=== PATIENT | female | born 1965 | race Two or more races ===

== ENCOUNTER 2017-01-21 01:52 | Inpatient (IN) | payer SELFPAY ==
--- NOTE | ~2017-01-21 | HEMODYNAMI ---
PATIENT:DAKOTA MATAMOROS MEDICAL RECORD: [id number] : 69 LOCATION:[facility] D.2116 ADMISSION DATE: 01/21/17 Generatedon:01/21/201716:31 Patient name: DAKOTA MATAMOROS Patient #: [id number] SSN: : 1965 Date of study: 01/21/2017 Page: Of Hemodynamic Procedure Report Patient Data Patient Demographics Procedure consent was obtained First Name: DAKOTA Gender: Female Last Name: SHILOH : 1965 Patient #: [id number] Age: 51 year(s) Race: Other Additional ID: [id number] Contact details [address]: [address] [place] [address] [address]IVE State: [place] City: [place] Zip code: [address] Past Medical History Allergies Allergen Reaction Date Comments Reported Other allergy 01/21/2017 shellfish, cinnnamon Admission Admission Data Admission Date: 01/21/2017 Admission Time: 4:47 Admit Source: Emergency department Room #: D.2116 Lab Results Lab Result Date: 01/21/2017 Lab Result Time: 9:45 Biochemistry Name Units Result Min Max BUN mg/dl 12 --(-*--)-- 7 18 Creatinine mg/dl 1 --(--*-)-- 0.6 1.3 CBC Name Units Result Min Max Hematocrit % 38.2 *-(----)-- 42 54 Hemoglobin g/dl 12.7 -*(----)-- 13.5 17.5 Procedure Procedure Types Cath Procedure Diagnostic Procedure LHC LHC w/Coronaries Miscellaneous Procedures Moderate Sedation up to 15 minutes Procedure Description Procedure Date Procedure Date: 01/21/2017 Procedure Start Time: 16:22 Procedure End Time: 16:30 Procedure Staff Name Function Roshan Yousif MD Performing Physician Brian Villeda RT Scrub Duy Rodriguez RN Nurse Alcides Mello RT Monitor Procedure Data Cath Procedure Fluoroscopy Diagnostic fluoroscopy Total fluoroscopy Time: 0.7 time: 0.7 min min Diagnostic fluoroscopy Total fluoroscopy dose: 304 dose: 304 mGy mGy Contrast Material Contrast Material Type Amount (ml) Isovue 300 47 Entry Location Entry Primary Successful Side Size Upsize Upsize Entry Closure [place]ales ccessful Closure Location (Fr) 1 (Fr) 2 (Fr) Remarks Device Remarks Radial Right 6 Fr Mechanical artery Short Compression Estimated blood loss: 5 ml Diagnostic catheters Device Type Used For End Catheter Placement Diagnostic Terumo 5Fr Procedure [place] 110cm catheter Procedure Complications No complications Procedure Medications Medication Administration Route Dosage Oxygen NC 2 l/min Lidocaine 2% added to field 20 Heparin Flush Bag added to field 2 bags (1000units/500ml NS) 0.9% NaCl I.V. 100 ml/hr Versed I.V. 1 mg Fentanyl I.V. 50 mcg Radial Cocktail I.A. 1 syringe (Verapomil 2mg/Nitro 400mcg/Heparin 1500units) Versed I.V. 1 mg Fentanyl I.V. 50 mcg Hemodynamics Rest HGB: 12.7 (g/dl) Heart Rate: 98 (bpm) Pressure Samples Time Site Value (mmHg) Purpose Heart Use Rate(bpm) 16:25 LV 105/27,33 Snapshot 109 16:25 LV 102/11,21 Snapshot 109 Snapshots Pre Cath Intra NCS Post Cath Vital Signs Time Heart Resp SPO2 etCO2 [id number] NIBP Rhythm Pain Sedation Rate (ipm) (%) (mmHg) (mmHg) (mmHg) Status Level (bpm) 15:58:22 94 13 98 0 0 123/71(93) NSR 0 (11) 10(A) , No pain 16:03:06 89 14 96 0 0 123/76(91) NSR 0 (11) 10(A) , No pain 16:07:51 97 17 99 0 0 121/75(94) NSR 0 (11) 10(A) , No pain 16:12:36 83 14 96 0 0 118/68(89) NSR 0 (11) 10(A) , No pain 16:17:21 84 15 97 0 0 117/69(88) NSR 0 (11) 10(A) , No pain 16:22:03 86 14 100 0 0 113/65(88) NSR 0 (11) 10(A) , No pain 16:26:46 101 15 95 0 0 111/53(79) NSR 0 (11) 9(A) , No pain 16:31:02 91 15 96 0 0 112/60(85) NSR 0 (11) 10(A) , No pain Medications Time Medication Route Dose Verified Delivered Reason Notes Effectiveness by by 16:02:14 Oxygen NC 2 l/min Roshan Gordillo used for Benja Rodriguez RN procedure 16:02:24 Lidocaine 2% added 20ml Roshan Islas for local to vial Benja Yousif MD anesthetic field 16:02:32 Heparin Flush added 2 bags Roshan Islas used for Bag to Benja Yousif MD procedure (1000units/500ml field NS) 16:02:42 0.9% NaCl I.V. 100 Roshan Gordillo Per ml/hr Benja Rodriguez RN physician 16:21:45 Versed I.V. 1 mg Roshan Gordillo for sedation Benja Rodriguez RN 16:21:53 Fentanyl I.V. 50 mcg Roshan Gordillo for sedation Benja Rodriguez RN 16:24:39 Radial Cocktail I.A. 1 Roshan Islas for (Verapomil syringe Benja Yousif MD vasodilation 2mg/Nitro 400mcg/Heparin 1500units) 16:25:36 Versed I.V. 1 mg Roshan Gordillo for sedation Benja Rodriguez RN 16:25:41 Fentanyl I.V. 50 mcg Roshan Gordillo for sedation Benja Rodriguez RN Procedure Log Time Note 15:25:39 Duy Rodriguez RN sent for patient. Start room use. 15:41:14 Informed consent obtained and on chart 15:41:20 Admit Source: Emergency department 15:41:47 Time tracking: Regular hours 15:41:51 Plan of Care:Hemodynamics will remain stable., Cardiac rhythm will remain stable., Comfort level will be maintained., Respiratory function will remain adequate., Patient/ family verbilizes understanding of procedure., Procedure tolerated without complication., Recovers from procedure without complications.. 15:42:03 Patient received from Med II to CCL 2 Alert and oriented. Tansferred to table in Supine position. 15:42:04 Warm blankets applied, and orinaa hugger turned on for patient comfort. 15:42:04 Correct patient and procedure confirmed by team. 15:42:05 ECG and BP/O2 sat monitors applied to patient. 15:42:12 H&P Date Dictated: 01/21/2017 New H&P dictated by physician.. 15:42:14 Pre-procedure instructions explained to patient. 15:42:14 Pre-op teaching completed and patient verbalized understanding. 15:42:17 Family in patients room. 15:42:18 Patient NPO since Midnight. 15:42:37 Patient allergic to Other allergyshellfish, cinnnamon 15:42:43 Is the patient allergic to Iodine/contrast media? Unknown. 15:42:45 Was the patient premedicated? Yes 15:49:53 Vital chart was started 15:49:54 Baseline sample Acquired. 15:50:04 Rhythm: sinus rhythm 15:50:16 Full Disclosure recording started 15:54:01 Patient diabetic? No. 15:54:05 Previous problem with sedation/anesthesia? No ? 15:54:07 Snore? Yes 15:54:08 Sleep apnea? No 15:54:09 Deviated septum? No 15:54:10 Opens mouth fully? Yes 15:54:10 Sticks out tongue? Yes 15:54:12 Airway obstruction? No ? 15:54:15 Dentures? No ? 15:54:20 Modified Yariel's test Ulnar < 7 seconds 15:54:21 Patient pain scale 0/10 ?. 15:54:33 IV patent on arrival in left hand with 0.9% NaCl at [facility]. 15:55:25 Lab Result : Creatinine 1 mg/dl 15:55:25 Lab Result : BUN 12 mg/dl 15:55:25 Lab Result : Hemoglobin 12.7 g/dl 15:55:25 Lab Result : Hematocrit 38.2 % 15:55:28 Lab results completed and on chart. 15:55:32 Right Radial & Right Groin area was prepped with chlora-prep and draped in sterile fashion 15:55:34 Alarms reviewed by R. N. 15:55:35 Sharps counted by scrub and verified by R.N. 15:55:39 Use device set Radial Dx 15:55:40 MBrace Wrist Support opened to sterile field. 15:55:41 Acist Manifold opened to sterile field. 15:55:41 Acist Hand Control opened to sterile field. 15:55:42 Acist Syringe opened to sterile field. 15:55:43 Medline Cath Pack opened to sterile field. 15:55:43 Bag Decanter opened to sterile field. 15:55:44 Terumo 6Fr Slender Glidesheath opened to sterile field. 15:55:44 St Lion 260cm J .035 wire opened to sterile field. 15:55:45 Tegaderm 4 x 4 opened to sterile field. 16:01:56 IV Extension Set opened to sterile field. 16:02:14 Oxygen 2 l/min NC was administered by Duy Rodriguez RN; used for procedure; 16:02:24 Lidocaine 2% 20ml vial added to field was administered by Roshan Yousif MD; for local anesthetic; 16:02:32 Heparin Flush Bag (1000units/500ml NS) 2 bags added to field was administered by Roshan Yousif MD; used for procedure; 16:02:42 0.9% NaCl 100 ml/hr I.V. was administered by Duy Rodriguez RN; Per physician; 16:20:58 Physician arrived 16:20:58 --------ALL STOP TIME OUT------ 16:20:59 Final Timeout: patient, procedure, and site verified with staff and physician. All members of the team are in agreement. 16:21:01 Right Radial & Right Groin site verified by team. 16:21:04 Physical assessment completed. ASA score P 2 - A patient with mild systemic disease as per Roshan Yousif MD. 16:21:06 Sedation plan: IV Moderate Sedation Versed, Fentanyl 16:21:45 Versed 1 mg I.V. was administered by Duy Rodriguez RN; for sedation; 16::53 Fentanyl 50 mcg I.V. was administered by Duy Rodriguez RN; for sedation; 16:22:35 Procedure started. 16:22:38 Local anesthetic to right radial artery with Lidocaine 2% by Roshan Yousif MD.INITIAL ACCESS ONLY 16:23:14 A 6 Fr Short sheath was inserted into the Right Radial artery 16:24:39 Radial Cocktail (Verapomil 2mg/Nitro 400mcg/Heparin 1500units) 1 syringe I.A. was administered by Roshan Yousif MD; for vasodilation; 16:24:42 A Diagnostic Terumo 5Fr [place] 110cm catheter was advanced over the wire and used for Procedure. 16:25:08 LV gram done using BUSH 16:25:10 Injector settings: Ml/sec: 5, Volume: 15, 16:25:31 EF : 55 % 16:25:35 LCA angiography performed. 16:25:36 Versed 1 mg I.V. was administered by Duy Rodriguez RN; for sedation; 16::41 Fentanyl 50 mcg I.V. was administered by Duy Rodriguez RN; for sedation; 16:26:28 RCA angiography performed. 16::38 Catheter removed. 16::44 Terumo TR Band Standard opened to sterile field. 16:27:06 Sheath removed intact; hemostasis achieved with Mechanical Compression to the Right Radial artery. 16:27:07 Procedure ended.(Physican Out) 16:28:13 Fluoroscopy time 00.70 minutes. 16:28:17 Fluoroscopy dose: 304 mGy 16:28:17 Flurop Dose total: 304 16:28:20 Contrast amount:Isovue 300 47ml. 16:28:21 Sharps counted by scrub and verified by R.N. 16:28:51 TR band inflated with 12cc of air. 16:28:53 Insertion/operative site no bleeding no hematoma. 16:28:57 Post Procedure Pulses reassessed and unchanged 16:28:59 Post-procedure physical assessment completed. ASA score P 2 - A patient with mild systemic disease as per Roshan Yousif MD. 16:29:02 Post procedure rhythm: unchanged. 16:29:09 Estimated blood loss: 5 ml 16:29:11 Post procedure instruction explained to patient.Patient verbalizes understanding. 16:29:12 Patient needs reinforcement of post procedure teaching. 16:29:20 Procedure type changed to Cath procedure, Diagnostic procedure, LHC, LHC w/Coronaries, Miscellaneous Procedures, Moderate Sedation up to 15 minutes 16:29:42 Procedure and supply charges have been captured, reviewed, submitted and are correct. 16:29:45 Procedure Complication : No complications 16::47 Vital chart was stopped 16::47 See physician's report for complete and final results. 16:29:49 Report given to PCU. 16:29:52 Patient transfered to PCU with Stretcher. 16:30:15 Procedure ended. 16:30:15 Full Disclosure recording stopped 16:30:24 End room use (Document Last) Device Usage Item Name Manufacture Quantity Catalog Hospital Part Current Minimal Lot# / Number Charge Number Stock Stock Serial# Code MBce [facility] 1 [id number] 42458 [id number] 5 Wrist Vascular Support Dynamics Acist Acist 1 61818 975587 824345 824937 5 Manifold [employer] Systems Inc Acist Hand Acist 1 31145 895408 308065 249972 5 Control Medical Systems Inc Acist Acist 1 31805 805388 807068 442191 20 Syringe Medical Systems Inc Medline Cardinal 1 [id number] 09050 961280 5 Cath Pack Health Bag Microtek 1 2002S 840308 50633 367814 5 Decanter [employer] Inc. Terumo 6Fr Terumo 1 [id number] 008802 877965 230752 [address] St Lion 1 693163 798551 444310 688082 30 260cm J .035 wire Tegaderm 4 3M 1 1626W 122009 797755 254999 5 x 4 IV Hospira 1 06665-78 874673 81430 596907 5 Extension Set Diagnostic Terumo 1 97-3074 377935 226124 602002 5 Terumo 5Fr [place] 110cm catheter Terumo TR Terumo 1 [id number] 182817 040941 981120 40 Band Standard Signature Audit [place] Stage Time Signature Unsigned Intra-Procedure 01/21/2017 Alcides Mello 4:31:49 PM RT(R) Signatures Monitor : Alcides Mello RT Signature : Date : Time : [facility] [address] [facility] [place] [address]
[2017-01-21 02:21] LABS: BASOPHILS 0.2 % (0-2); EOSINOPHILS 2.6 % (0-7); HEMATOCRIT 38.2 % (36.0-48.0); HEMOGLOBIN 12.7 g/dL (12-16); IMMATURE GRANULOCYTES 0.5 % (0-5); LYMPHOCYTES 39.3 % (15-50); MCH 29.3 pg (26.0-34.0); MCHC 33.2 g/dL (31.0-37.0); MCV 88.2 fL (80.0-100.0); MEAN PLATELET VOLUME 11.2 fL (7.4-10.4); MONOCYTES 4.2 % (2-11); NEUTROPHILS 53.2 % (40-80); PLATELET COUNT 243 10x3/uL (130-400); RBC 4.33 10x6/uL (4.00-5.40); RDW 15.2 % (11.5-14.5); WBC 18.2 10x3/uL (4.8-10.8)
[2017-01-21 02:43] LABS: ALKALINE PHOSPHATASE 114 U/L (46-116); ALT (SGPT) 13 U/L (10-68); CALC OSMOLALITY 286 mosm/kg (275-300); CALCIUM 8.1 mg/dL (8.5-10.1); CARBON DIOXIDE 25.2 mmol/L (21.0-32.0); CHLORIDE - SERUM 105 mmol/L (98-107); CREATINE KINASE 157 UL (21-215); CREATININE - SERUM 1.2 mg/dL (0.6-1.3); GLUCOSE 230 mg/dL (74-106); PROTEIN - SERUM 6.4 g/dL (6.4-8.2); SODIUM 139 mmol/L (136-145); TROPONIN-I < 0.017 ng/mL (0.000-0.060); UREA NITROGEN 17 mg/dL (7-18); eGFR NON AFRICAN AMERICAN 51 mL/min (90-120)
[2017-01-21 02:45] LABS: POTASSIUM - SERUM 2.7 mmol/L (3.5-5.1)
[2017-01-21] MEDS ORDERED: BAYER CHEWABLE81 MG PO (05:11)
[2017-01-21] MEDS ORDERED: ULTRAM50 MG PO (05:12)
--- NOTE | 2017-01-21 05:30 | NUR ---
RECIEVED TO ROOM 2115 FROM ER VIA STRETCHER, PT SLEEPY BUT AROUSES TO VERBAL STIMULI, PT IS A&O. LIPS ARE SWOLLEN AND PT TALKS WITH A RASPY VOICE, PT STATES THAT SHE HAS HAD AN ALLERGIC REACTION TO SOMETHING SHE ATE, BENADRYL 50 MG WAS GIVEN IN ER. RESPERATIONS EVEN ON AT 3 LITER VIA NC. PLACED ON TELEMETRY, 76 SR PER MT. IV TO LEFT ARM SL, SITE CLEAN AND DRY. HISTORY AND HOME MEDICAITON LIST COMPLETE. PT DENIES PAIN OR NEEDS, BED LOW, CL IN REACH, WILL CONT TO MONITOR.
[2017-01-21] MEDS ORDERED: CYCLOBENZAPRINE10 MG PO (05:32)
[2017-01-21 05:57] VITALS: BP 99/65; BMI 29.9
[2017-01-21 08:11] VITALS: BP 114/71
[2017-01-21 10:10] VITALS: BMI 29.8
[2017-01-21 10:43] LABS: CALCIUM 8.2 mg/dL (8.5-10.1)
[2017-01-21 10:44] LABS: ANION GAP 15.8 mmol/L (8-16); POTASSIUM - SERUM 4.8 mmol/L (3.5-5.1)
[2017-01-21 10:45] LABS: TROPONIN-I 0.809 ng/mL (0.000-0.060)
[2017-01-21 12:10] VITALS: BP 121/71
--- NOTE | 2017-01-21 12:13 | NUR ---
CONSENTS SIGNED FOR [facility]. WILL CONT. PLAN OF CARE.
--- NOTE | 2017-01-21 12:31 | HP ---
PATIENT: DAKOTA MATAMOROS MEDICAL RECORD: [id number] ACCOUNT: [id number] LOCATION:[address] : 69 ADMISSION DATE: 01/21/17 HISTORY AND PHYSICAL EXAMINATION DATE ASSIGNED TO OBSERVATION: 01/21/17 CHIEF COMPLAINT: Swelling. HISTORY OF PRESENT ILLNESS: This is a 51-year-old female who is in town for a conference. She lives in [place], [place]. She was about to go to bed last night and had the acute onset of swelling. It started out actually in her hands and then went to her lips, tongue, and mouth. Everything that was swollen was itchy. She asked her roommate if she had any Benadryl, she did not and by the time they went downstairs to get some Benadryl at the desk, her condition worsened, 911 was called and she was brought to the ER. The patient remembers very little after that, she states she was "not coherent." This morning, she is telling me that she ate supper last night about 8:00 p.m. and had a folate and lobster and sweet potato. The patient states she had an episode like this many years ago where everything swell up and became swollen like this and she went to the Emergency Department in [place] and the patient states that she was told that she was ALLERGIC TO "SEASONAL SEAFOOD ALLERGIES." She states she ate some shrimp before the other episode in the past. In the ER, last night, not long after she got there, vital signs were stable. Epinephrine was ordered followed by Benadryl and then IV Zantac, Zofran, and normal saline. There, started to show some arrhythmias on the monitor and EKG showed ST elevations consistent with [place]. One set of lab that was done in the ER last night showed a troponin less than 0.017. Her potassium was low at 2.7. White count was elevated at 18, calcium was a little low at 8.1. The rest of the lab looked okay. She was then given IV Lopressor and Cardizem. She was given 1 dose of 40 mEq of potassium and repeat EKG showed resolution of the ST elevations. She is assigned to observation with telemetry now. She is much more awake and alert. PAST MEDICAL HISTORY: She has had some low back pains. PAST SURGICAL HISTORY: Bilateral tubal ligation. ALLERGIES: She was told to say SHE IS ALLERGIC TO SHELLFISH, though she is eating shrimp and lobster many times since the one episode around the year 1999 when she presented to the [place] Emergency Department with swelling. Also, she states she has been ALLERGIC TO CINNAMON since she was a child, that CAUSES SWELLING "IN MY PRIVATES." HABITS: No tobacco. She drinks alcohol very occasionally. No drugs. SOCIAL HISTORY: She is . She works as a production machine operator. FAMILY HISTORY: Father when she was a child. He was murdered. Mother is alive with diabetes. The patient states brother is alive at 55, but had a myocardial infarction at age 33. HOME MEDICATIONS: Aspirin 81 mg once a day, tramadol p.r.n. severe back pain, and Flexeril p.r.n. severe back pain. REVIEW OF SYSTEMS: HISTORY AND PHYSICAL [id number] DAKOTA MATAMOROS GENERAL: No major weight changes. HEENT: No particular sinus or allergy problems except these now 2 episodes where she has had swelling of the lips and tongue. RESPIRATORY: No history of asthma or emphysema. CARDIAC: No history of chest pain or palpitations. GASTROINTESTINAL: No trouble with reflux, diarrhea, or constipation. GENITOURINARY: No significant problems there. MUSCULOSKELETAL: She has some low back pains. NEUROLOGIC: No headaches or seizures. PSYCHIATRIC: Denies depression or melancholia. PHYSICAL EXAMINATION: VITAL SIGNS: Today, temperature 98.1, pulse 80, respirations 17, blood pressure 114/71. GENERAL: She is awake and alert. She does not appear in distress. HEENT: Unremarkable except her lips appear swollen right now. Her tongue is somewhat swollen compared to normal according to her. NECK: Supple. No JVD or bruit. HEART: Regular rate and rhythm without murmur. LUNGS: Clear. ABDOMEN: Soft, flat, nontender. EXTREMITIES: No edema. LABORATORY DATA: Lab done last night, CBC with a white count of 18,200, hemoglobin 12.7, hematocrit 38.2, and platelets number 243,000. Sodium 139, potassium was 2.7, chloride 105, CO2 25.2, BUN 17, creatinine 1.2, glucose was 230, calcium 8.1. Liver enzymes were all normal. Troponin less than 0.017: EKGs done in the ER last night, the first one I see at 2:[address] elevations in the lateral leads consistent with acute MO. This was repeated at 2:10 and was it was same. Repeated again at 2:[address] elevation, and at 2:57 and there was a normal sinus rhythm with prolonged QT and ST elevation had resolved. ASSESSMENT: 1. Angioedema due to uncertain cause. 2. Epinephrine-induced ST elevation with questionable myocardial infarction. PLAN: She never had any chest pain; however, she states she was not coherent while she was in the ER a lot and does not remember any chest pain at all. We will repeat a BMP today to see what her potassium level is and get another troponin and if it is elevated, we will consult cardiology. Other tests and procedures as warranted. TRANSINT:[id number] Voice Confirmation ID: [id number] DOCUMENT ID: [id number] HISTORY AND PHYSICAL [id number] DAKOTA MATAMOROS WILLIAM MD at 1231 CC: [id number] DICTATION DATE: 01/21/17906 LIFE UNDERWRITER: 01/21/17 1134 ADM IN [facility] [address] [place] [address]
[2017-01-21 15:26] VITALS: BP 116/65
--- NOTE | 2017-01-21 15:35 | NUR ---
PRE-OPS GIVEN. TO SUPERVISOR PIG MACHINE BY BED.
--- NOTE | 2017-01-21 17:00 | NUR ---
BACK FROM GRAIN DISTRIBUTOR. VS WNL. RIGHT WRIST STABLE WITH TR BAND INTACT. WILL MONITOR.
--- NOTE | 2017-01-21 19:39 | NUR ---
TR BAND TO RIGHT WRIST REMOVED, NO SWELLING. BLEEDING OR HEMATOMA NOTED. COVERED WITH 2X2 AND TEGADERM, IV TO LEFT HAND REMOVED, TIP INTACT. COVERED WITH 2X2 AND BANDAID. DISCHARGE INSTRUCTIONS GONE OVER WITH PT AND , BOTH STATE UNDERSTANDING. COPIES OF DC ORDERS GIVEN. WILL ESCORT PT OUT BY WC TO PERSONAL CAR.
--- NOTE | 2017-01-23 13:09 | OP ---
PATIENT NAME: DAKOTA MATAMOROS MEDICAL RECORD: [id number] :69 LOCATION:D.M2 D.2116 ADMISSION DATE:01/21/17 SURGEON: DOMONIQUE MENDOZA MD DATE OF OPERATION: 01/21/2017 PROCEDURES: 1. Left heart catheterization. 2. Selective coronary angiography. 3. Left ventriculogram. INDICATION: Elevated troponin after allergic reaction. PROCEDURE IN DETAIL: After informed consent was obtained and after a detailed explanation of risks, benefits as well as alternative therapies, the patient elected to proceed with angiogram and heart catheterization. The right radial area was prepped and draped in normal sterile fashion. The right radial artery was cannulated via modified Seldinger technique with placement of 6-[place] sheath. All catheters exchanged through this sheath. FINDINGS: Left ventriculogram was performed in standard 30-degree BUSH view, reveals good cardiac wall motion throughout all segments. Overall ejection fraction estimated 60%. SELECTIVE CORONARY ANGIOGRAPHY: Left main, left anterior descending, left circumflex, right coronary are all smooth-walled vessels with no angiographic evidence of coronary artery disease. OVERALL IMPRESSION: 1. No angiographic evidence of coronary artery disease. 2. Normal left heart pressures. 3. Normal left ventricular systolic function. 4. Elevated troponin was secondary to demand ischemia from the allergic reaction. No further cardiac workup or treatment is necessary. TRANSINT:[id number] Voice Confirmation ID: [id number] DOCUMENT ID: [id number] DOMONIQUE MENDOZA MD at 1309 CC: PADMAJA UREÑA MD [id number] DICTATION DATE: 01/21/17 1629 MOTEL MANAGER: 01/21/17 1641 DIS IN 01/21/17 [place] [id number] [place] [id number]
--- NOTE | 2017-01-23 13:09 | CN ---
PATIENT NAME:DAKOTA MATAMOROS MEDICAL RECORD: [id number] : 69 LOCATION:D. D.2116 ADMIT DATE: 01/21/17 ACCOUNT: [id number] CONSULTING PHYSICIAN: DOMONIQUE MENDOZA MD REFERRING PHYSICIAN: PADMAJA UREÑA MD DATE OF CONSULTATION: 01/21/2017 Cardiology Consultation DIAGNOSES: 1. Increased troponin compatible with non-Q-wave myocardial infarction. 2. Allergic reaction. HISTORY OF PRESENT ILLNESS: Mrs. Matamoros has a cardiac history of mitral valve prolapse, seen by hospital product specialist in [place], but no history of ischemic heart disease. 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 She went to [place] last night. She had lobster tail in her baked potato, had cinnamon and 3 hours later, she had an allergic reaction. Her allergic reaction is now over; however, her troponin is elevated and her EKG has gross ST-T abnormalities inferiorly. PHYSICAL EXAMINATION: GENERAL APPEARANCE: Well-nourished, well-developed, appears stated age. Level of distress, comfortable. PSYCHIATRIC: Mental status, alert, normal affect. Orientation, oriented to time, place and person. EYES: Lids and conjunctiva, noninjected. No discharge, no pallor. ENT: Lips, teeth, gums, normal dentition. Oropharynx, no cyanosis, no pallor. NECK: Carotid arteries, bilateral normal upstroke, no bruits, no thrills. JUGULAR VEINS: No jugular venous pressure or distention. CERVICAL LYMPH NODES: Nontender, nonenlarged. THYROID: Not enlarged. Nontender. No nodules. LUNGS: Respiratory effort, unlabored. CHEST: Normal curvature. No thoracic deformity. No chest wall tenderness. Percussion, resonant. Auscultation, clear. No wheezes, no rales, no rhonchi. CARDIOVASCULAR: Precordial exam, nondisplaced. No heaves or pericardial thrills. Rate and rhythm, regular. Heart sounds, normal S1, normal S2. No S3, no gallop, no rub. Systolic murmur, not heard. Diastolic murmur, not heard. EXTREMITIES: No cyanosis, no edema. Peripheral pulses, full and equal in all extremities, except as noted. No bruits appreciated. ABDOMEN: Soft, nondistended. Normal aorta. No bruit. Nontender. No masses. Liver, nontender, no hepatomegaly. Spleen, nontender, no splenomegaly. MUSCULOSKELETAL: No joint tenderness. No joint swelling. No erythema. NEUROLOGICAL: Normal gait, normal strength, normal tone. SKIN: Warm and dry. REVIEW OF SYSTEMS: The patient reports easy bruising but reports no swollen glands. The patient reports no fever, no night sweats, no significant weight gain, no significant weight loss. No significant exercise tolerance. The patient reports no dry eyes, no irritation, no vision change. Patient reports no difficulty hearing and no ear pain. Patient reports no frequent nose bleeds or nose and sinus problems. Patient reports on arm pain on exertion. No shortness of breath while lying down. No history of heart murmur. Patient reports no cough, no wheezing or coughing up blood. Patient reports no abdominal pain, no vomiting. Normal appetite. No diarrhea and not vomiting CONSULT REPORT [id number] SHILOHDAKOTA abbie. No nausea and no constipation. Patient reports no incontinence. No difficulty urinating. No hematuria. No increased frequency. Patient reports no muscle aches. No weakness, no arthralgias, no back pain. No swelling of the extremities. Patient reports no abnormal mole, no jaundice, no rashes. Reports no loss of consciousness. No weakness and no numbness. No seizures, dizziness, or headaches. The patient reports no depression, no sleep disturbance, feeling safe in a relationship and no alcohol abuse. Patient reports on fatigue. Reports no runny nose or sinus pressure. No itching, no hives, and no frequent sneezing. OVERALL IMPRESSION: Non-Q-wave myocardial infarction in conjunction with an allergic reaction. Most likely, she does have hemodynamically significant coronary artery disease. We will give her another dose of Solu-Medrol, proceed with coronary angiography later today. Further care depends upon findings of the angiography. TRANSINT:[id number] Voice Confirmation ID: [id number] DOCUMENT ID: [id number] DOMONIQUE MENDOZA MD at 1309 CC: [id number] DICTATION DATE: 01/21/17 1141 GERICARE AIDE: 01/21/17 1233 DIS IN 01/21/17 [facility] [address] [place] [address]
== END 2017-01-21 20:15 | disposition home or self-care (01) | DRG 287 ==
LOC: D.ER 01:52 → D.M2 04:47
PROVIDERS: Family Medicine; Internal Medicine Interventional Cardiology; ADMIT Family Medicine
PROC: B2151ZZ Fluoroscopy of Left Heart using Low Osmolar Contrast (ICD-10-PCS; 2017-01-21)
PROC: 4A023N7 Measurement of Cardiac Sampling and Pressure, Left Heart, Percutaneous Approach (ICD-10-PCS; 2017-01-21)
PROC: B2111ZZ Fluoroscopy of Multiple Coronary Arteries using Low Osmolar Contrast (ICD-10-PCS; principal; 2017-01-21 12:45)
DX: I24.8 Other forms of acute ischemic heart disease (principal); T78.3XXA Angioneurotic edema, initial encounter; E87.6 Hypokalemia; R79.89 Other specified abnormal findings of blood chemistry